=== PATIENT | male | born 1965 | race American Indian/Alaskan Native ===

== ENCOUNTER 2016-10-21 23:06 | Emergency (ER) | payer MEDICARE ==
[2016-10-21 23:24] VITALS: BP 138/89
[2016-10-21] MEDS ORDERED: TYLENOL ONE (23:31)
[2016-10-21] MEDS ORDERED: TYLENOL PO ONE (23:33)
[2016-10-22] MEDS ORDERED: MORPHINE ONE (02:08)
[2016-10-22] MEDS ORDERED: NACL 0.9% 500 ML IR ONE (02:23)
[2016-10-22] MEDS ORDERED: THERMAZENE 50 GRAM TP ONE (02:33)
[2016-10-22] MEDS ORDERED: MORPHINE IV ONE (02:33)
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
[2016-10-22] MEDS ORDERED: NACL 0.9% IR ONE (03:33)
== END 2016-10-22 03:46 | disposition home or self-care (01) ==
LOC: ED 23:06
DX: T22.211A Burn of second degree of right forearm, initial encounter (principal); T31.0 Burns involving less than 10% of body surface; I10 Essential (primary) hypertension; E11.9 Type 2 diabetes mellitus without complications; X19.XXXA Contact with other heat and hot substances, initial encounter; Y93.G3 Activity, cooking and baking; Y92.89 Other specified places as the place of occurrence of the external cause; Y99.8 Other external cause status
CPT/HCPCS: 16025; 82962; 96374; 99283; J2270